=== PATIENT | male | born 1950 | race Caucasian/White ===

== ENCOUNTER → 2016-11-28 | Outpatient (CLI) | payer OTHER ==
[~2016-11-28] MED LIST: CONTRAST GIVEN MC PRN; IOHEXOL 300 MG/ML 50 ML VIAL. IV ONE
--- NOTE | 2016-11-28 13:45 | RAD ---
EXAM: CT head with contrast. HISTORY: Recurrent lower extremity paresis and multiple falls. TECHNIQUE: CT of the head was performed after the intravenous administration of 50 mL Omnipaque. COMPARISON: 01/16/2012. FINDINGS: There are no enhancing lesions. Limited images of the intracranial vasculature reveal no gross abnormality other than mild atherosclerotic calcifications along the cavernous internal carotid arteries. There is no intracranial hemorrhage. Prominence of the lateral ventricles and hemispheric sulci indicate moderate atrophy. Mild hypoattenuation within the periventricular white matter indicates mild chronic small vessel ischemic change. The orbits, temporal bones, paranasal sinuses and calvarium are unremarkable. IMPRESSION: 1. No enhancing lesions. MRI is more sensitive if there is persistent concern. 2. No acute intracranial findings. 3. Moderate atrophy and mild chronic small vessel ischemic white matter change. One or more of the following individualized dose reduction techniques were utilized for this examination: 1. Automated exposure control. 2. Adjustment of the mA and/or kV according to patient size. 3. Use of iterative reconstruction technique.
== END | disposition home or self-care (01) ==
LOC: CT 12:49
PROVIDERS: ATTEND Family Medicine
DX: G31.9 Degenerative disease of nervous system, unspecified (principal); R56.9 Unspecified convulsions; R29.6 Repeated falls; R90.82 White matter disease, unspecified
CPT/HCPCS: 70460; Q9967

== ENCOUNTER 2017-11-28 22:34 | Emergency (ER) | payer MEDICARE, OTHER ==
[~2017-11-28] VITALS: Ht 180.3 cm; Wt 87.1 kg
[2017-11-28 22:35] VITALS: BP 137/88
--- NOTE | 2017-11-29 00:02 | PHYS DOC ---
Adult General Chief Complaint Chief Complaint: LACERATION/AVULSION HPI HPI Patient is a 67 year old male who presents with complaint of laceration to the left hand. Patient states that he accidentally tripped and fell onto a gravel driveway. Patient states this he stuck his hands out to catch himself from falling he injured his left hand by cutting it on a sharp rock. Patient states that the laceration occurred at the base of the left fifth finger on the palmar side. Bleeding was controlled prior to arrival. Patient washed the wound out prior to coming in. Patient was concerned whether further wound care would be necessary thus he came to the emergency department for evaluation. Review of Systems Review of Systems Constitutional: Denies fever or chills [] Eyes: Denies change in visual acuity, redness, or eye pain [] HENT: Denies nasal congestion or sore throat [] Respiratory: Denies cough or shortness of breath [] Cardiovascular: Denies chest pain or edema[] GI: Denies abdominal pain, nausea, vomiting, bloody stools or diarrhea [] : Denies dysuria or hematuria [] Musculoskeletal: Denies back pain or joint pain [] Integument: Laceration to left hand[] Neurologic: Denies headache, focal weakness or sensory changes [] All other systems were reviewed and found to be within normal limits, except as documented in this note. Allergies Allergies Allergies Coded Allergies Type Severity Reaction Last Updated Verified No Known Drug Allergies 11/28/16 No Physical Exam Physical Exam Constitutional: Well developed, well nourished, no acute distress, non-toxic appearance. [] HENT: Normocephalic, atraumatic, bilateral external ears normal, oropharynx moist, no oral exudates, nose normal. [] Eyes: PERRLA, EOMI, conjunctiva normal, no discharge. [] Neck: Normal range of motion, no tenderness, supple, no stridor. [] Cardiovascular:Heart rate regular rhythm, no murmur [] Lungs & Thorax: Bilateral breath sounds clear to auscultation [] Abdomen: Bowel sounds normal, soft, no tenderness, no masses, no pulsatile masses. [] Skin: Warm, dry, no erythema, no rash. [] Back: No tenderness, no CVA tenderness. [] Extremities: 2 cm laceration along the palmar aspect base of left fifth digit left hand with visualize subcutaneous tissue, significant surrounding maceration of epidermal skin around laceration, no cyanosis, no clubbing, ROM intact, no edema. [] Neurologic: Alert and oriented X 3, normal motor function, normal sensory function, no focal deficits noted. [] Current Patient Data Vital Signs Vital Signs Date Time Temp Pulse Resp B/P (MAP) Pulse Ox O2 Delivery O2 Flow Rate FiO2 11/28/17 22:35 98.1 89 20 96 Room Air Lab Results Not performed EKG EKG Not performed[] Radiology/Procedures Radiology/Procedures Indication: Left hand laceration Procedure: The patient was placed in the appropriate position and anesthesia around the laceration was achieved with local infiltration of lidocaine 2%. The area was then cleansed with tap water. The laceration was treated by first applying Steri-Strips parallel to the laceration. The wound was then closed using 3-0 Ethilon simple interrupted sutures which were infiltrated through the Steri-Strips in order to hold the sutures in place. The wound area was then dressed with Telfa and gauze. Total repaired wound length: 2.5 cm. Other Items: Total suture count: 3 The patient tolerated the procedure TOLERATED. Complications: None.[] Course & Med Decision Making Course & Med Decision Making Pertinent Labs and Imaging studies reviewed. (See chart for details) Laceration was repaired as outlined in the procedure note. Advised patient follow up in 10-14 days with primary doctor for reevaluation. Patient initiated on Keflex therapy for antibiotic prophylaxis. Advised return to emergency department for any worsening symptoms. Patient was understanding and in agreement with treatment plan. Dragon Disclaimer Dragon Disclaimer This electronic medical record was generated, in whole or in part, using a voice recognition dictation system. Departure Departure: Impression: Primary Impression: Hand laceration Disposition: 01 HOME, SELF-CARE Condition: IMPROVED Referrals: GORGE KEITA MD (PCP) Patient Instructions: Laceration Care, Adult Additional Instructions: Follow-up with your primary doctor in the next 10-14 days to have your sutures removed. Return to the emergency department for any worsening symptoms. Scripts Cephalexin (KEFLEX) 500 Mg Capsule 1 CAP PO BID, #10 CAP Prov: YVONNE CHATMAN MD 11/29/17 Problem Qualifiers Primary Impression: Hand laceration Encounter type: initial encounter Foreign body presence: without foreign body Laterality: left Qualified Codes: S61.412A - Laceration without foreign body of left hand, initial encounter YVONNE CHATMAN MD Nov 29, 2017 00:02
[2017-11-29] MEDS ORDERED: DIPHTH,PERTUSS(ACELL),TET TOX 0.5 ML DISP.SYRIN. VAX IM ONE (00:15)
[2017-11-29] MEDS ORDERED: CEPH-264 PO (00:54)
[2017-11-29] MEDS ORDERED: LIDOCAINE 2% 20 ML VIAL. IJ ONE (01:00)
[2017-11-29] MEDS ORDERED: CEPHALEXIN 250 MG CAPSULE PO ONE (01:30)
== END 2017-11-29 01:15 | disposition home or self-care (01) ==
LOC: ER 22:34
DX: S61.217A Laceration without foreign body of left little finger without damage to nail, initial encounter (principal); W01.0XXA Fall on same level from slipping, tripping and stumbling without subsequent striking against object, initial encounter; Y93.89 Activity, other specified; Y99.8 Other external cause status; Y92.64 Mine or pit as the place of occurrence of the external cause
CPT/HCPCS: 12001; 90471; 90715; 99283-25

== ENCOUNTER → 2020-03-12 | Outpatient (CLI) | payer MEDICARE, OTHER ==
[~2020-03-12] MED LIST changes: +CEPH-264 PO; -CONTRAST GIVEN MC PRN; -IOHEXOL 300 MG/ML 50 ML VIAL. IV ONE
== END | disposition home or self-care (01) ==
LOC: LAB 01:28
PROVIDERS: ATTEND Family Medicine
DX: Z20.828 Contact with and (suspected) exposure to other viral communicable diseases (principal)
CPT/HCPCS: U0003-CS

== ENCOUNTER 2020-04-03 12:30 | Emergency (ER) | payer MEDICARE, OTHER ==
[~2020-04-03] VITALS: Ht 182.9 cm; Wt 84.2 kg
[2020-04-03 12:35] VITALS: BP 115/83
[2020-04-03] MEDS ORDERED: LIDOCAINE 1%/EPI 1:100,000 20 ML VIAL. IJ ONE (13:15)
--- NOTE | 2020-04-03 13:15 | PHYS DOC ---
Past History Past Medical History: Hypertension Past Surgical History: No Surgical History Alcohol Use: None Drug Use: None General Adult EDM: Chief Complaint: LACERATION/AVULSION HPI: HPI: 70-year-old male coming in for laceration to his left forehead and face just lateral to his left eye. Him and his cleaned the wound with alcohol and applied topical antibiotic ointment. States he got lightheaded but did not pass out, no loss of consciousness. Dizzy sometimes gets "hypotensive" from his blood pressure medications including propanolol. Review of Systems: Review of Systems: Constitutional: Denies fever or chills Eyes: Denies change in visual acuity HENT: Denies nasal congestion or sore throat Respiratory: Denies cough or shortness of breath Cardiovascular: Denies chest pain or edema GI: Denies abdominal pain, nausea, vomiting, bloody stools or diarrhea : Denies dysuria Musculoskeletal: Denies back pain or joint pain Integument: Denies rash, facial wounds Neurologic: Denies headache, focal weakness or sensory changes Endocrine: Denies polyuria or polydipsia Lymphatic: Denies swollen glands Psychiatric: Denies depression or anxiety Heart Score: Risk Factors: Risk Factors: DM, Current or recent (<one month) smoker, HTN, HLP, family history of CAD, obesity. Risk Scores: Score 0 - 3: 2.5% MACE over next 6 weeks - Discharge Home Score 4 - 6: 20.3% MACE over next 6 weeks - Admit for Clinical Observation Score 7 - 10: 72.7% MACE over next 6 weeks - Early Invasive Strategies Current Medications: Current Meds: Current Medications Medications (Trade) Dose Ordered Sig/[facility] Start Time Stop Time Status Last Admin Dose Admin Lidocaine/ Epinephrine (Xylocaine 1%-Epi 1:100,000) 20 ml 1X ONCE 04/03/20 13:15 04/03/20 13:16 Allergies: Allergies: Allergies Coded Allergies Type Severity Reaction Last Updated Verified No Known Drug Allergies 11/28/16 No Physical Exam: PE: Left forehead, 1 cm superficial laceration lateral to left eye. Constitutional: Well developed, well nourished, no acute distress, non-toxic appearance. [] HENT: Normocephalic, atraumatic, bilateral external ears normal, oropharynx moist, no oral exudates, nose normal. [] Eyes: PERRLA, EOMI, conjunctiva normal, no discharge. [] Neck: Normal range of motion, no tenderness, supple, no stridor. [] Cardiovascular:Heart rate regular rhythm, no murmur [] Lungs & Thorax: Bilateral breath sounds clear to auscultation [] Abdomen: Bowel sounds normal, soft, no tenderness, no masses, no pulsatile masses. [] Skin: Warm, dry, no erythema, no rash. [] 3 cm laceration Back: No tenderness, no CVA tenderness. [] Extremities: No tenderness, no cyanosis, no clubbing, ROM intact, no edema. [] Neurologic: Alert and oriented X 3, normal motor function, normal sensory function, no focal deficits noted. [] Psychologic: Affect normal, judgement normal, mood normal. [] Current Patient Data: Vital Signs: Vital Signs Date Time Temp Pulse Resp B/P (MAP) Pulse Ox O2 Delivery O2 Flow Rate FiO2 04/03/20 12:35 97.6 110 20 115/83 (94) 98 Room Air EKG: EKG: [] Radiology/Procedures: Radiology/Procedures: Seven 5-0 sutures placed in forehead laceration, injection of 1% lidocaine with epi. No anesthetic on 1 cm laceration by eye, closed with Dermabond. [] Course & Med Decision Making: Course & Med Decision Making Pertinent Labs and Imaging studies reviewed. (See chart for details) [] Dragon Disclaimer: Dragon Disclaimer: This electronic medical record was generated, in whole or in part, using a voice recognition dictation system. Departure Departure: Impression: Primary Impression: Laceration of face, multiple sites Disposition: 01 DC HOME SELF CARE/HOMELESS Condition: STABLE Referrals: GORGE KEITA MD (PCP) Patient Instructions: Facial Laceration Additional Instructions: Follow-up for suture removal in 1 week SHARON KENDRICK MD Apr 03, 2020 13:15
== END 2020-04-03 13:30 | disposition home or self-care (01) ==
LOC: ER 12:30
DX: S01.81XA Laceration without foreign body of other part of head, initial encounter (principal); I10 Essential (primary) hypertension; X58.XXXA Exposure to other specified factors, initial encounter; Y93.89 Activity, other specified; Y92.89 Other specified places as the place of occurrence of the external cause; Y99.8 Other external cause status
CPT/HCPCS: 12011; 12013; 99284